=== PATIENT | female | born 1985 | race Caucasian/White ===

== ENCOUNTER 2016-11-30 05:31 | Day surgery (SDC) | payer BC ==
[~2016-11-30] VITALS: Ht 165.1 cm; Wt 108.8 kg
[~2016-11-30 05:31] MED LIST: TOPICAL
[2016-11-30] MEDS ORDERED: MOTRIN800 MG PO (07:33)
[2016-11-30 09:13] VITALS: BP 121/79
[2016-11-30 10:18] VITALS: BP 125/76
== END 2016-11-30 10:31 | disposition home or self-care (01) ==
LOC: SDC → EDBD → SDC 05:31
PROC: 0UDB8ZX Extraction of Endometrium, Via Natural or Artificial Opening Endoscopic, Diagnostic (ICD-10-PCS; principal; 2016-11-30)
DX: N85.02 Endometrial intraepithelial neoplasia [EIN] (principal); E66.9 Obesity, unspecified; Z68.39 Body mass index [BMI] 39.0-39.9, adult; E28.2 Polycystic ovarian syndrome; Z87.891 Personal history of nicotine dependence
CPT/HCPCS: 88305; J0131; J1100; J1885; J2250; J2405; J2765; J3010